=== PATIENT | female | born 1950 | race Caucasian/White ===

== ENCOUNTER → 2016-11-03 | Day surgery (SDC) | payer OTHER ==
[~2016-11-03] MED LIST: ACIDOPHILUS1 CA2 PO; ALBUTEROL17 GM INH; ALLERGY RELIEF10 MG PO; BACLOFEN10 MG PO; BLACK COHOSH EX80 MG PO; BUTALB-ACETAMI1 EACH PO; CALCIUM 600 + D1 TA1 PO; CALCIUM1 TAB.CHEW PO; CENTRUM PO; DESYREL100 MG PO; FISH OIL 1,0001 CA2 PO; HYDROCHLOROTH12.5 MG PO; HYDROCODON-ACE1 EAC7 PO; HYDROCODON-ACE1 EAC9 PO; LYRICA PO; MAGNESIUM400 MG PO; NASACORT10.8 ML; PRAVASTATIN SOD20 MG PO; STOOL SOFTENER1 EAC1 PO; TRAMADOL HCL50 M2 PO; VITAMIN B-121000 MCG PO; VITAMIN C500 M5 PO; VITAMIN D1000 UNI2 PO
--- NOTE | ~2016-11-03 | OR ---
Unit #: [id number] #: [id number] Patient: AHMET OWENS [id number] [address] [place], [place] [address] [id number] O MR#: [id number] NAME: AHMET OWENS ROOM: Date of Procedure: 11/03/2016 Admission Date: 11/03/2016 Surgeon: Jarred Moise M.D. : 1950 Attending Physician: Jarred Moise M.D. Primary Care Physician: Pasha Rojo M.D. SURGERY CENTER OPERATIVE NOTE PROCEDURE PERFORMED Lumbar epidural steroid injection under x-ray guided needle placement with provider administered conscious sedation. PREOPERATIVE DIAGNOSES 1. Acute lumbar radiculitis. 2. Spinal stenosis, lumbosacral spine. 3. Herniated disk, L5-S1. 4. Herniated disk, L4-L5. 5. Degenerative joint disease, lumbosacral spine. 6. Degenerative disk disease, lumbosacral spine. INDICATIONS FOR PROCEDURE The patient presents today with longstanding history of chronic lumbar radicular pain secondary to her underlying degenerative processes. She is generally fairly well managed medically with ongoing conservative measures which included physical therapy and medications; however, she does occasionally experience exacerbations, which breakthrough this ongoing treatment and to date have only responded to interventional pain management procedures. She presents today with a 2 weeks long history of an exacerbation consistent with past left greater than right, which has broken through her usual and ongoing conservative measures. After discussing risks and benefits of proceeding today with a lumbar approach epidural steroid injection and an offer to return to this clinic as early as , the patient agreed this would be the appropriate course of action. DESCRIPTION OF PROCEDURE She was then taken to the operating room, where she was prepped and draped in a sterile manner. Standard monitors were applied. She was sedated with 2 mg of IV Versed initially and required an additional 2 mg of IV Versed throughout the duration of procedure. Lumbar epidural space was accessed at the L5-S1 level using loss of resistance technique and x-ray guidance. Needle placement was confirmed with injection of 2 mL of Omnipaque. There was approximately 50:50 mix of superior and inferior flow of her x-ray dye. Following successful needle placement confirmation, the patient received an injectate containing 6 mL normal saline and 80 mg of methylprednisolone. She tolerated this procedure well. She was discharged home with followup instructions, which include return dates as described above. Dictated by... Unit #: [id number] #: [id number] Patient: FIDE LYLESAHMET M.D. JRG/fe TD: 11/03/2016 23:04 JOB #: [id number] [facility]ENTER OPERATIVE NOTE Page 1 of 1 X Yash Moise MD X PROCEDURE OPERATIVE NOTE
== END | disposition home or self-care (01) ==
LOC: CCSC 07:58
DX: M51.17 Intervertebral disc disorders with radiculopathy, lumbosacral region (principal); M47.27 Other spondylosis with radiculopathy, lumbosacral region; M51.16 Intervertebral disc disorders with radiculopathy, lumbar region; M48.07 Spinal stenosis, lumbosacral region
CPT/HCPCS: J1040; J2250

== ENCOUNTER → 2017-02-16 | Day surgery (SDC) | payer MEDICARE, OTHER ==
--- NOTE | ~2017-02-16 | OR ---
Unit #: [id number] #: [id number] Patient: AHMET OWENS [id number] [address] [place], [place] [address] [id number] O MR#: [id number] NAME: AHMET OWENS. ROOM: Date of Procedure: 02/16/2017 Admission Date: 02/16/2017 Surgeon: Jarred Moise M.D. : 1950 Attending Physician: Yash Moise Primary Care Physician: Pasha Rojo M.D. SURGERY CENTER OPERATIVE NOTE JOB NOTE: VERIFY CC PROCEDURES PERFORMED Lumbar epidural steroid injection under x-ray guided needle placement. PREOPERATIVE DIAGNOSES 1. Acute lumbar radiculitis. 2. Spinal stenosis, lumbosacral spine. 3. Herniated disk, L5-S1. 4. Herniated disk, L4-L5. 5. Degenerative joint disease, lumbosacral spine. 6. Degenerative disk disease, lumbosacral spine. 7. Facet arthrosis, lumbosacral spine. INDICATIONS FOR PROCEDURE The patient presents today with longstanding history of chronic lumbar facet as well as lumbar radicular pain secondary to her underlying degenerative processes. She is generally fairly well managed medically with ongoing continuous therapy, which include medications and self-directed activity. She is occasionally experience exacerbations, which have broken through her ongoing continuous measures and to date have only responded to interventional pain management procedures. Her usual amount of relief is 60% for 4 to 6 weeks. She presents today with just such an exacerbation and requests an epidural steroid injection. After discussing risks and benefits of proceeding today with a lumbar approach epidural steroid injection and offer to return this clinic as early as 05/23/2017, the patient agreed this would be the appropriate course of action. DESCRIPTION OF PROCEDURE She was then taken to the operating room, where she was prepped and draped in sterile manner. Standard monitors were applied. She refused all forms of sedation and lumbar epidural space accessed at the L5-S1 level using loss of resistance technique and x-ray guidance. Needle placement was confirmed with injection of 2 mL of Omnipaque. There was good superior and inferior flow at this L5-S1 level. Following successful needle placement confirmation, the patient received an injectate containing 4 mL normal saline and 80 mg of methylprednisolone. She tolerated this procedure well. She was discharged home with followup instructions, which include return dates as described above. Dictated by... Unit #: [id number] #: [id number] Patient: FIDE AHMET LYLES M.D. JRG/fe TD: 02/16/2017 14:13 JOB #: [id number] SUR[facility] CENTER OPERATIVE NOTE Page 1 of 1 X Yash Moise MD X PROCEDURE OPERATIVE NOTE
== END | disposition home or self-care (01) ==
LOC: CCSC 08:00
DX: G89.29 Other chronic pain (principal); M51.17 Intervertebral disc disorders with radiculopathy, lumbosacral region; M51.16 Intervertebral disc disorders with radiculopathy, lumbar region; M47.27 Other spondylosis with radiculopathy, lumbosacral region; M48.07 Spinal stenosis, lumbosacral region; Z88.6 Allergy status to analgesic agent; Z79.51 Long term (current) use of inhaled steroids; Z79.899 Other long term (current) drug therapy; Z98.890 Other specified postprocedural states; Z98.818 Other dental procedure status
CPT/HCPCS: J1040; J2250

== ENCOUNTER → 2017-04-21 | Outpatient (CLI) | payer MEDICARE, OTHER ==
--- NOTE | ~2017-04-21 | BD1 ---
[facility] A Service of [facility] & [facility] / [facility] RADIOLOGY TEXT RESULTS PATIENT: AHMET ELIZALDE LOCATION: [facility] : 54 UNIT #: [id number] AGE: [address]: Jose Pritchard MD SEX: F ORDER DR: [id number] [address] [address] [id number] O MR#: [id number] Acc #: [id number] NAME: AHMET ELIZALDE : 1950 SEX: F STUDY DATE/TIME: 04/21/2017 8:52 UNIT: [facility] ROOM: STUDY DESCRIPTION: Dexa Bone Dens 1+ Site Attending Physician: Jose Pritchard M.D. Referring Physician: Jose Pritchard M.D. Ordering Physician: Jose Pritchard M.D. Primary Care Physician: Jose Pritchard M.D. MEDICAL IMAGING REPORT This report is preliminary unless electronic signature is present. EXAM Bone densitometry 04/21/2017 HISTORY 67-year-old postmenopausal female. FINDINGS The bone marrow density of the lumbar spine (L1-L4) was calculated at 1.186 g/sq cm. There correlates with a T score of 0 and a Z-score 0.8. This is classified as normal bone mineralization. The right proximal femoral neck is calculated at 1.017 g/cm sq. This correlates with a T-score of -0.2 and a Z-score of 0.8. This is classified as normal bone mineralization. The bone mineral density of the left proximal femoral neck is calculated at -1.055 g/cm2. This correlates with a T-score of 0.1 and a Z score of 1. This is normal bone mineralization. IMPRESSION Normal bone mineralization. Dictated by... Feng Camara M.D. THIS IS AN ELECTRONICALLY VERIFIED REPORT Feng Camara M.D. at 04/23/2017 9:46 AM [facility]/suzan TD: 04/21/2017 19:21 JOB #: [id number] [facility] A Service of [facility] & [facility] / [facility] RADIOLOGY TEXT RESULTS PATIENT: AHMET ELIZALDE LOCATION: [facility] #: [id number] : [birth year] UNIT #: [id number] AGE: [address]: Jose rPitchard MD SEX: F ORDER DR: MEDICAL IMAGING REPORT Page 1 of 1
== END | disposition home or self-care (01) ==
LOC: SRAD 08:33
DX: M85.88 Other specified disorders of bone density and structure, other site (principal)
CPT/HCPCS: 77080